=== PATIENT | male | born 1980 | race African-American/Black ===

== ENCOUNTER 2022-07-04 12:49 | Emergency (ER) | payer SELFPAY | END 2022-07-04 13:23 | disposition home or self-care (01) | LOC: ERS 12:49 | DX: K04.7 Periapical abscess without sinus (principal); K02.9 Dental caries, unspecified; I10 Essential (primary) hypertension; F17.210 Nicotine dependence, cigarettes, uncomplicated; Z79.899 Other long term (current) drug therapy | CPT/HCPCS: 99283 ==

== ENCOUNTER → 2022-07-25 | Emergency (ER) | payer OTHER, SELFPAY | LOC: ERS 17:04 | DX: Z53.21 Procedure and treatment not carried out due to patient leaving prior to being seen by health care provider (principal) ==

== ENCOUNTER 2024-12-07 00:48 | Emergency (ER) | payer OTHER, SELFPAY ==
[2024-12-07] MEDS ORDERED: Ketorolac Tromethamine 30 MG (1 mL) VIAL ONE (01:29)
[2024-12-07] MEDS ORDERED: HYDROcodone/Acetaminophen 5/325 mg Tablet ONE (02:30)
== END 2024-12-07 03:02 | disposition home or self-care (01) ==
LOC: ERS 00:48
DX: M25.561 Pain in right knee (principal); I10 Essential (primary) hypertension; F17.210 Nicotine dependence, cigarettes, uncomplicated; Z79.899 Other long term (current) drug therapy; X50.1XXA Overexertion from prolonged static or awkward postures, initial encounter; Y93.83 Activity, rough housing and horseplay
CPT/HCPCS: 96372; 99283; J1885